=== PATIENT | female | born 1950 | race Caucasian/White ===

== ENCOUNTER 2019-12-10 12:59 | Outpatient (CLI) | payer MEDICARE, SELFPAY ==
--- NOTE | ~2019-12-10 | MM_ITS ---
EXAMINATION: MM screening sukhi BI w rajeev HISTORY: Screening TECHNIQUE: Craniocaudal and mediolateral oblique 3-D tomosynthesis images were obtained and synthetic 2-D images were generated. CAD analysis was submitted and interpreted. COMPARISON: Comparison to multiple prior studies sequentially, with oldest reviewed study dated 02/01. BREAST PARENCHYMAL COMPOSITION: There are scattered areas of fibroglandular density. FINDINGS: There is no evidence of suspicious mass, calcification, or architectural distortion to sugg est malignancy in either breast. There has been no suspicious interval change. IMPRESSION: 1. No mammographic evidence of malignancy. 2. Recommend routine screening mammography in one year. BI-RADS Category 1: Negative Reviewed, dictated and finalized at location A.
== END 2019-12-10 13:00 | disposition home or self-care (01) ==
LOC: ANHIMG 13:03
PROVIDERS: PCP Family Medicine; Visit Provider Family Medicine
DX: Z12.31 Encounter for screening mammogram for malignant neoplasm of breast (principal)
CPT/HCPCS: 77063; 77067

== ENCOUNTER 2021-08-23 13:47 | Outpatient (CLI) | payer MEDICARE, SELFPAY ==
--- NOTE | ~2021-08-23 | MM_ITS ---
EXAMINATION: MM screening sukhi BI w rajeev HISTORY: Screening TECHNIQUE: Craniocaudal and mediolateral oblique 3-D tomosynthesis images were obtained and synthetic 2-D images were generated. CAD analysis was submitted and interpreted. COMPARISON: Comparison to multiple prior studies sequentially, with oldest reviewed study dated 04/20. BREAST PARENCHYMAL COMPOSITION: Breast composition is almost entirely fatty FINDINGS: There is no evidence of suspicious mass, calcification, or architectural distortion to sugg est malignancy in either breast. There has been no suspicious interval change. IMPRESSION: 1. No mammographic evidence of malignancy. 2. Recommend routine screening mammography in one year. BI-RADS Category 1: Negative Reviewed, dictated and finalized at location A.
--- NOTE | ~2021-08-23 | DEXA_ITS ---
Bone Density Report Name: DMITRI VALENCIA Age: 71 Sex: Female Ethnicity: White Date of : 1950 Indication: postmenopausal; height loss; prior fracture; Referring Provider: ANA LAMBERT Study: Bone densitometry was performed. Exam Date: August 23, 2021 Accession number: [id number] Bone Density: Region BMD T-score Z-score Classification AP Spine (L1-L4) 0.961 -0.8 1.3 Normal Femoral Neck (Left) 0.750 -0.9 0.9 Normal Total Hip (Left) 1.008 0.5 2.0 Normal Total Hip Bilateral Avg 0.990 0.4 1.9 Normal Femoral Neck (Right) 0.779 -0.6 1.1 Normal Total Hip (Right) 0.970 0.2 1.7 Normal World Health Organization criteria for BMD impression classify patients as: Normal (T-score at or above -1.0), Osteopenia (T-score between -1.0 and -2.5), or Osteoporosis (T-score at or below -2.5). 10-year Fracture Risk: FRAX not reported because: All T-scores for Spine Total, Hip Total, Femoral Neck at or above -1.0 Previous Exams: Region Exam Age BMD T-score BMD Change BMD Change Date g/cm2 vs Baseline vs Previous AP Spine(L1-L4) 08/23/2021 71 0.961 -0.8 -0.013(-1.3%)# -0.013(-1.3%)# 06/05/2007 57 0.974 -0.7 Total Hip(Left) 08/23/2021 71 1.008 0.5 0.022(2.2%)# 0.022(2.2%)# 06/05/2007 57 0.985 0.4 Total Hip(Right) 08/23/2021 71 0.970 0.2 0.016(1.6%)# 0.016(1.6%)# 06/05/2007 57 0.954 0.1 *Denotes significance at 95% confidence level, LSC for AP Spine = 0.022 g/cm2, LSC for Total Hip = 0.027 g/cm2 Clinical Information Provided by Patient: Has had a low trauma fracture Has used the following medications: Vitamin D, Calcium Patient maximum height was 68 Menopause Age: 57 Drinks caffeinated beverages Onset of menses at age 15 Number of children 2 Impression: The patient has normal bone mass. The patient has risk factors, including: previous fracture. No significant bone loss was observed. Discussion: BONE DENSITY IS ABOVE THE MINIMUM DESIRABLE LEVEL AT ALL SKELETAL SITES TESTED. This patient?s bone mineral density is above the minimum desirable level (T-score -1.0 or better) at all sites measured. The patient should follow a healthful lifestyle (good nutrition with adequate calcium and vitamin D, and appropriate weight-bearing exercise). Follow-Up: Consider repeating this study in 5 years or sooner if there is some new clinical indication. Reported by: KAYLA on 08/23/2021 2:31:00 PM.
== END 2021-08-23 13:48 | disposition home or self-care (01) ==
PROVIDERS: PCP Family Medicine; Visit Provider Family Medicine
DX: Z12.31 Encounter for screening mammogram for malignant neoplasm of breast (principal); Z78.0 Asymptomatic menopausal state
CPT/HCPCS: 77063; 77067; 77080

== ENCOUNTER 2021-10-23 14:26 | Emergency (ER) | payer MEDICARE, SELFPAY ==
[2021-10-23 14:35] VITALS: BP 149/60; PULSE 83; RESP 16; TEMP 36.9; O2SAT 98
--- NOTE | 2021-10-23 14:54 | ED.SKABFB ---
HPI - Skin/Abscess/Foreign Bdy General Chief complaint: Skin/Abscess/Foreign Body Stated complaint: insect bite Time Seen by Provider: 10/23/21 14:55 Source: patient Mode of arrival: ambulatory Limitations: no limitations History of Present Illness HPI narrative: 71-year-old female presents with complaint of small blister to dorsal aspect of right foot for 4 to 5 days. Reports that it started with itching and then turned into a blister. Unsure of insect bite. No change to blister over the past several days. There is no erythema or pain. Itching has resolved. Patient concerned what may have caused blister. All systems reviewed and negative except as noted above. Related Data Home Medications Medication Instructions Recorded Confirmed cetirizine 10 mg capsule PO DAILY 06/27/19 10/10/21 famotidine 40 mg tablet 80 mg PO BID 11/25/19 10/10/21 acyclovir 400 mg tablet 1,200 mg PO DAILY 10/10/21 10/10/21 ascorbic acid (vitamin C) 500 mg 250 mg PO DAILY 10/10/21 10/10/21 tablet calcium carbonate 600 mg calcium 600 mg PO BID 10/10/21 10/10/21 (1,500 mg) tablet diclofenac sodium 1 % topical gel 4 g topical QID 10/10/21 10/10/21 (Arthritis Pain (diclofenac)) ferrous sulfate 325 mg (65 mg 325 mg PO DAILY 10/10/21 10/10/21 iron) tablet (Feosol) garlic 1,000 mg capsule 1,000 mg PO BID 10/10/21 10/10/21 magnesium oxide 400 mg PO BID 10/10/21 10/10/21 pdqiamoviswo-Fz-gmyx-minerals 18 tablet PO 10/10/21 10/10/21 mg-0.4 mg tablet wkxux-1p-ede-epa-fish oil 120 cap PO BID 10/10/21 10/10/21 mg-180 mg-60 mg-1,200 mg capsule, DR (Fish Oil) pirbuterol 200 mcg/Inhalation mcg inhalation 10/10/21 10/10/21 breath activated aerosol Beta Caratine 25,000 10/23/21 Super B Complex 10/23/21 Tumeric 1,000 mg 10/23/21 Vit B1 10/23/21 Vit B12 10/23/21 biotin 5,000 mcg disintegrating 10,000 mcg PO DAILY 10/23/21 10/23/21 tablet Allergies Allergy/AdvReac Type Severity Reaction Status Date / Time house dust Allergy Unknown Sneezing Verified 10/10/21 11:17 nickel Allergy Unknown rash Verified 10/10/21 11:17 pneumococcal vaccine Allergy Unknown Skin Verified 10/10/21 11:17 [Pneumovax 23] Reaction Review of Systems Review of Systems: CONSTITUTIONAL: Denies fever, chills, or sweats. EYES: Denies visual changes, redness, or discharge. ENT: Denies rhinorrhea, congestion, sore throat, or otalgia. CARDIOVASCULAR: Denies chest pain, palpitations, or edema. RESPIRATORY: Denies cough or dyspnea. GASTROINTESTINAL: Denies abdominal pain, nausea, vomiting, or diarrhea. GENITOURINARY: Denies dysuria or hematuria. SKIN: Denies rash or itching. Reports small blister to dorsal aspect right foot. MUSCULOSKELETAL: Denies back pain, joint pain, or myalgia. NEUROLOGIC: Denies headache, numbness, or weakness. PSYCHIATRIC: Denies anxiety or depression. All other systems reviewed are negative, except as documented in HPI. [facility] Family History Family History Mother Depression Sibling Family history of lupus erythematosus Family history of lymphoma Other Family history of cardiovascular disease Family history of glaucoma Social History Social History Alcohol intake: current Comments At time of signature, agree with nursing past medical, surgical, social and family history. There is no relevant family history pertinent to the presenting complaint. Exam Narrative: GENERAL: This is a well-nourished, well-developed patient, in no apparent distress. HEAD: normocephalic, atraumatic. EYES: PERRL. Sclera clear/white. Vision is grossly intact. EARS: External ears normal. NOSE: External nose normal NECK: Neck supple, non-tender without lymphadenopathy, masses or thyromegaly. CARDIOVASCULAR: Regular rate and rhythm without murmurs, gallops, or rubs. RESPIRATORY: Clear to auscultation. Breath sounds equal bilaterally. No
== END 2021-10-23 15:06 | disposition home or self-care (01) ==
PROVIDERS: Emergency Provider Nurse Practitioner Family; PCP Family Medicine
DX: S90.821A Blister (nonthermal), right foot, initial encounter (principal); X58.XXXA Exposure to other specified factors, initial encounter; I10 Essential (primary) hypertension; J45.909 Unspecified asthma, uncomplicated
CPT/HCPCS: 99213; G0463

== ENCOUNTER 2021-12-02 18:20 | Emergency (ER) | payer MEDICARE, SELFPAY ==
--- NOTE | 2021-12-02 18:36 | ED.ANIMALBIT ---
HPI - Animal Bite General Chief Complaint: Animal Bite Stated Complaint: Cat Scratches Time Seen by Provider: 12/02/21 18:36 Source: patient Mode of arrival: ambulatory Limitations: no limitations History of Present Illness HPI narrative: 71-year-old female presents with complaint of weeping and redness to medial aspect of left ankle. Reports that she recently got a new kitten and it scratches around the lower aspect of her legs. Denies fever chills. Ambulatory with a steady gait. Patient concerned that she may need an antibiotic. Called her primary care physician this morning who was not able to get an appointment. All systems reviewed and negative except as noted above. Related Data Home Medications Medication Instructions Recorded Confirmed cetirizine 10 mg capsule 10 mg PO DAILY 06/27/19 12/02/21 famotidine 40 mg tablet 80 mg PO BID 11/25/19 12/02/21 acyclovir 400 mg tablet 1,200 mg PO DAILY 10/10/21 12/02/21 ascorbic acid (vitamin C) 500 mg 250 mg PO DAILY 10/10/21 12/02/21 tablet calcium carbonate 600 mg calcium 600 mg PO BID 10/10/21 12/02/21 (1,500 mg) tablet diclofenac sodium 1 % topical gel 4 g topical QID 10/10/21 12/02/21 (Arthritis Pain (diclofenac)) ferrous sulfate 325 mg (65 mg 325 mg PO DAILY 10/10/21 12/02/21 iron) tablet (Feosol) garlic 1,000 mg capsule 1,000 mg PO BID 10/10/21 12/02/21 magnesium oxide 400 mg PO BID 10/10/21 12/02/21 ucxputiitcvv-Am-zjgv-minerals 18 1 tablet PO DAILY 10/10/21 12/02/21 mg-0.4 mg tablet mtpcw-0d-bet-epa-fish oil 120 1 cap PO BID 10/10/21 12/02/21 mg-180 mg-60 mg-1,200 mg capsule, DR (Fish Oil) pirbuterol 200 mcg/Inhalation 1 mcg inhalation DIRECTED 10/10/21 12/02/21 breath activated aerosol Beta Caratine 25,000 units PO DAILY 10/23/21 12/02/21 Super B Complex 1 tab-cap PO DAILY 10/23/21 12/02/21 Tumeric 1,000 mg PO DAILY 10/23/21 12/02/21 Vit B1 1 tab-cap PO DAILY 10/23/21 12/02/21 Vit B12 1 tab-cap PO DAILY 10/23/21 12/02/21 biotin 5,000 mcg disintegrating 10,000 mcg PO DAILY 10/23/21 12/02/21 tablet Allergies Allergy/AdvReac Type Severity Reaction Status Date / Time house dust Allergy Unknown Sneezing Verified 12/02/21 18:23 nickel Allergy Unknown rash Verified 12/02/21 18:23 pneumococcal vaccine Allergy Unknown Skin Verified 12/02/21 18:23 [Pneumovax 23] Reaction Review of Systems Review of Systems: CONSTITUTIONAL: Denies fever, chills, or sweats. EYES: Denies visual changes, redness, or discharge. ENT: Denies rhinorrhea, congestion, sore throat, or otalgia. CARDIOVASCULAR: Denies chest pain, palpitations, or edema. RESPIRATORY: Denies cough or dyspnea. GASTROINTESTINAL: Denies abdominal pain, nausea, vomiting, or diarrhea. GENITOURINARY: Denies dysuria or hematuria. SKIN: Denies rash or itching. Reports weeping, erythema to left ankle. MUSCULOSKELETAL: Denies back pain, joint pain, or myalgia. NEUROLOGIC: Denies headache, numbness, or weakness. PSYCHIATRIC: Denies anxiety or depression. All other systems reviewed are negative, except as documented in HPI. PMF[facility] Family History Family History Mother Depression Sibling Family history of lupus erythematosus Family history of lymphoma Other Family history of cardiovascular disease Family history of glaucoma Social History Social History Alcohol intake: current Comments At time of signature, agree with nursing past medical, surgical, social and family history. There is no relevant family history pertinent to the presenting complaint. Exam Narrative: GENERAL: This is a well-nourished, well-developed patient, in no apparent distress. HEAD: normocephalic, atraumatic. EYES: PERRL. Sclera clear/white. Vision is grossly intact. EARS: External ears normal NOSE: External nose normal NECK: Neck supple, non-tender without lymphadenopathy, masses or thyromegaly.
[2021-12-02 18:38] VITALS: BP 138/78; PULSE 73; RESP 20; TEMP 36.3; O2SAT 98
== END 2021-12-02 18:55 | disposition home or self-care (01) ==
PROVIDERS: Emergency Provider Nurse Practitioner Family
DX: S80.812A Abrasion, left lower leg, initial encounter (principal); W55.03XA Scratched by cat, initial encounter
CPT/HCPCS: 99213; G0463

== ENCOUNTER 2022-12-29 18:09 | Emergency (ER) | payer MEDICARE, SELFPAY ==
--- NOTE | ~2022-12-29 | XR_ITS ---
EXAM: XR knee RT 3V DATE: 12/29/2022 19:21 HISTORY: rt posterior knee pain I think I might have twisted it . COMPARISON: None available. FINDINGS: Normal mineralization. No fracture or dislocation. No lytic or blastic lesion. Small-volum e joint fluid. Mild tricompartmental osteoarthritis. No erosion or periosteal change. Soft tissues wi thin normal limits. IMPRESSION: No acute osseous finding in the right knee. Reviewed, dictated and finalized at location K.
[2022-12-29 18:28] VITALS: BP 151/70; PULSE 81; RESP 16; TEMP 37.3; O2SAT 99
--- NOTE | 2022-12-29 19:21 | ED.LOWEXIN ---
HPI - Extremity Injury (Lower) General Chief Complaint: Extremity Injury, Lower Stated Complaint: right knee pain Source: patient Mode of arrival: ambulatory Limitations: no limitations History of Present Illness HPI Narrative: 72-year-old female presented for complaint of right posterior knee pain after injury last night. Patient had been experiencing right knee pain for a few weeks which she states was a result of compensating for chronic left knee pain. She states last night she stepped down off of a step and felt a sharp pain to the back of her knee which she rates 10/10 pain. Since then pain has subsided, however it radiates to the thigh and mid calf. Pain is worse with bearing weight. Denies swelling, bruising, redness, numbness, tingling, weakness of the extremities. She has been using a quad cane from her since the injury. She takes naproxen daily for arthritis. Related Data Home Medications Medication Instructions Recorded Confirmed cetirizine 10 mg capsule 10 mg PO DAILY 06/27/19 12/29/22 famotidine 40 mg tablet 80 mg PO BID 11/25/19 12/29/22 acyclovir 400 mg tablet 1,200 mg PO DAILY 10/10/21 12/29/22 ascorbic acid (vitamin C) 500 mg 250 mg PO DAILY 10/10/21 12/29/22 tablet calcium carbonate 600 mg calcium 600 mg PO BID 10/10/21 12/29/22 (1,500 mg) tablet diclofenac sodium 1 % topical gel 4 g topical QID 10/10/21 12/29/22 (Arthritis Pain (diclofenac)) ferrous sulfate 325 mg (65 mg 325 mg PO DAILY 10/10/21 12/29/22 iron) tablet (Feosol) magnesium oxide 400 mg PO BID 10/10/21 12/29/22 ungqovexrgng-Bq-etzr-minerals 18 1 tablet PO DAILY 10/10/21 12/29/22 mg-0.4 mg tablet mgzga-6o-iqj-epa-fish oil 120 1 cap PO BID 10/10/21 12/29/22 mg-180 mg-60 mg-1,[address] (Fish Oil) pirbuterol 200 mcg/Inhalation 1 mcg inhalation DIRECTED 10/10/21 12/29/22 breath activated aerosol Super B Complex 1 tab-cap PO DAILY 10/23/21 12/29/22 Tumeric 1,000 mg PO DAILY 10/23/21 12/29/22 biotin 5,000 mcg disintegrating 10,000 mcg PO DAILY 10/23/21 12/29/22 tablet Allergies Allergy/AdvReac Type Severity Reaction Status Date / Time house dust Allergy Unknown Sneezing Verified 12/29/22 18:45 nickel Allergy Unknown rash Verified 12/29/22 18:45 pneumococcal vaccine Allergy Unknown Skin Verified 12/29/22 18:45 [Pneumovax 23] Reaction Review of Systems Review of Systems: CONSTITUTIONAL: Denies body aches, fever, chills EYES: Denies visual changes ENT: Denies rhinorrhea, congestion CARDIOVASCULAR: Denies chest pain, palpitations, or edema. RESPIRATORY: Denies cough or dyspnea. GASTROINTESTINAL: Denies abdominal pain, nausea, vomiting, or diarrhea. SKIN: Denies rash, itching, or wounds. MUSCULOSKELETAL: reports right knee pain Denies back pain, or myalgia. NEUROLOGIC: Denies headache, numbness, tingling, or weakness. PSYCH: Denies depression or anxiety. All systems reviewed & are unremarkable except as noted in HPI and below PMFSH Past Medical History Medical History (Updated 12/29/22 @ 19:59 by Alicia Castillo APRN) Diffuse cystic mastopathy Essential (primary) hypertension Moderate persistent asthma, uncomplicated Prediabetes Surgical History Surgical History Status post surgical removal of nail matrix of toe (~12/2021) Family History Family History Mother Depression Sibling Family history of lupus erythematosus Family history of lymphoma Other Family history of cardiovascular disease Family history of glaucoma Social History Social History Social History: Caffeine-very little Smoking status: Never smoker Alcohol intake: current Alcohol use details: rarely Substance use: never Lack of Transportation: No Lack of Food: Never True Current Housing: I Have Housing Concerned About F
== END 2022-12-29 20:07 | disposition home or self-care (01) ==
PROVIDERS: Emergency Provider Nurse Practitioner Family; PCP Family Medicine
DX: M25.561 Pain in right knee (principal); I10 Essential (primary) hypertension; J45.909 Unspecified asthma, uncomplicated; R73.03 Prediabetes
CPT/HCPCS: 73562; 99213; G0463

== ENCOUNTER 2023-02-06 08:31 | Outpatient (CLI) | payer MEDICARE, SELFPAY ==
--- NOTE | ~2023-02-06 | MM_ITS ---
EXAMINATION: MM screening sukhi BI w rajeev HISTORY: Screening TECHNIQUE: Craniocaudal and mediolateral oblique 3-D tomosynthesis images were obtained and synthetic 2-D images were generated. CAD analysis was submitted and interpreted. COMPARISON: Comparison to multiple prior studies sequentially, with oldest reviewed study dated 04/20. BREAST PARENCHYMAL COMPOSITION: Breast composition is almost entirely fatty FINDINGS: There is no evidence of suspicious mass, calcification, or architectural distortion to sugg est malignancy in either breast. There has been no suspicious interval change. IMPRESSION: 1. No mammographic evidence of malignancy. 2. Recommend routine screening mammography in one year. BI-RADS Category 1: Negative Reviewed, dictated and finalized at location A.
== END 2023-02-06 08:32 | disposition home or self-care (01) ==
PROVIDERS: PCP Family Medicine; Visit Provider Family Medicine
DX: Z12.31 Encounter for screening mammogram for malignant neoplasm of breast (principal)
CPT/HCPCS: 77063; 77067

== ENCOUNTER 2023-02-26 07:23 | Day surgery (SDC) | payer MEDICARE, SELFPAY ==
[2023-02-09 10:33] VITALS: BMI 38.8
[2023-02-13 11:38] VITALS: BMI 38.2
--- NOTE | 2023-02-26 07:25 | WPDANESEPPF ---
Anes - Initial Pre Proc Eval Procedure: Operation Date: 02/26/23 09:00 Proposed Procedures p Screening Colonoscopy - Tanmay Vazquez MD Date/Time: 02/26/23 07:25 Surgeon: Tanmay Vazquez MD Pre Op Diagnosis: Neoplasm Screening Patient Data Age: 72 Gender: F Height: 1.73 m Weight: 114 kg Allergies Allergy/AdvReac Type Severity Reaction Status Date / Time house dust Allergy Unknown Sneezing Verified 02/26/23 07:33 nickel Allergy Unknown rash Verified 02/26/23 07:33 pneumococcal vaccine Allergy Unknown Skin Verified 02/26/23 07:33 [Pneumovax 23] Reaction Home Medications Medication Instructions Recorded Confirmed Type cetirizine 10 mg capsule 10 mg PO DAILY 06/27/19 02/26/23 History famotidine 40 mg tablet 80 mg PO BID 11/25/19 02/26/23 History fluticasone propionate 50 1 spray intranasal Q12H #16 grams 10/06/20 02/26/23 Rx mcg/actuation nasal spray,suspension acyclovir 400 mg tablet 1,200 mg PO DAILY 10/10/21 02/26/23 History ascorbic acid (vitamin C) 500 mg 250 mg PO DAILY 10/10/21 02/26/23 History tablet calcium carbonate 600 mg calcium 600 mg PO BID 10/10/21 02/26/23 History (1,500 mg) tablet diclofenac sodium 1 % topical gel 4 g topical QID 10/10/21 02/26/23 History (Arthritis Pain (diclofenac)) ferrous sulfate 325 mg (65 mg 325 mg PO DAILY 10/10/21 02/26/23 History iron) tablet (Feosol) magnesium oxide 400 mg PO BID 10/10/21 02/26/23 History dzraqceuatce-Qd-ldwo-minerals 18 1 tablet PO DAILY 10/10/21 02/26/23 History mg-0.4 mg tablet srgqa-2a-mlw-epa-fish oil 120 1 cap PO BID 10/10/21 02/26/23 History mg-180 mg-60 mg-1,200 mg capsule, DR (Fish Oil) pirbuterol 200 mcg/Inhalation 1 mcg inhalation DIRECTED 10/10/21 02/26/23 History breath activated aerosol Super B Complex 1 tab-cap PO DAILY 10/23/21 02/26/23 History Tumeric 1,000 mg PO DAILY 10/23/21 02/26/23 History biotin 5,000 mcg disintegrating 10,000 mcg PO DAILY 10/23/21 02/26/23 History tablet losartan 100 See Rx Instructions .Route 09/14/22 02/26/23 Rx mg-hydrochlorothiazide 12.5 mg .COMPLEX #100 tabs tablet fluticasone 250 mcg-salmeterol 50 1 inh inhalation BID #60 ea 10/17/22 02/26/23 Rx mcg/dose blistr powdr for inhalation (Wixela Inhub) hydrochlorothiazide 12.5 mg capsule See Rx Instructions .Route 01/01/23 02/26/23 Rx .COMPLEX #90 caps montelukast 10 mg tablet See Rx Instructions .Route 02/05/23 02/26/23 Rx .COMPLEX #90 tabs Patient hx anesthesia problems: none Family hx anesthesia problems: none Results Review: All pre-operative results and documents have been reviewed as part of the pre-operative evaluation. [facility] Past Medical History Medical History (Updated 12/30/22 @ 00:08 by Jayson Decker) Diffuse cystic mastopathy Essential (primary) hypertension Moderate persistent asthma, uncomplicated Prediabetes Surgical History Surgical History Status post surgical removal of nail matrix of toe (~12/2021) Family History Family History Mother Depression Sibling Family history of lupus erythematosus Family history of lymphoma Other Family history of cardiovascular disease Family history of glaucoma Social History Social History Social History: Caffeine-very little Smoking status: Never smoker Alcohol intake: current Alcohol use details: rarely Substance use: never Substance use type: does not use Lack of Transportation: No Lack of Food: Never True Current Housing: I Have Housing Concerned About Future Housing: No Difficulty Paying Gas/Electric Bills: No Difficulty Paying for Meds: No Currently Unemployed: No Education: Master's Degree or Higher Difficulty w/ Childcare or Family Care: No Living arrangements: with family Spiritual care concerns:
[2023-02-26 07:42] VITALS: BP 142/108; PULSE 79; RESP 18; TEMP 36.4; O2SAT 98; BMI 37.7
[2023-02-26] MEDS: LACTATED RINGERS 1,000 ML 150 ML IV CONT (08:09)
--- NOTE | 2023-02-26 08:09 | PM.HPGS ---
History of Present Illness History of Present Illness Consent: Risks, benefits, and alternatives have been discussed and questions answered. Patient agrees to proceed with procedure. Chief complaint: Neoplasm Screening Narrative: Emma Valenzuela is a 72 year old female presents for screening colonoscopy. Patient's current weight appetite and bowel movements are normal. Patient is abdominal pain. Patient is any bleeding. Family history is noncontributory. Review of Systems Review of Systems: All systems reviewed & are unremarkable except as noted in HPI and below PMFSH Past Medical History Medical History (Updated 12/30/22 @ 00:08 by Jayson Decker) Diffuse cystic mastopathy Essential (primary) hypertension Moderate persistent asthma, uncomplicated Prediabetes Surgical History Surgical History Status post surgical removal of nail matrix of toe (~12/2021) Family History Family History Mother Depression Sibling Family history of lupus erythematosus Family history of lymphoma Other Family history of cardiovascular disease Family history of glaucoma Social History Social History Social History: Caffeine-very little Smoking status: Never smoker Alcohol intake: current Alcohol use details: rarely Substance use: never Substance use type: does not use Lack of Transportation: No Lack of Food: Never True Current Housing: I Have Housing Concerned About Future Housing: No Difficulty Paying Gas/Electric Bills: No Difficulty Paying for Meds: No Currently Unemployed: No Education: Master's Degree or Higher Difficulty w/ Childcare or Family Care: No Living arrangements: with family Spiritual care concerns: No Meds Home Medications and Allergies Home Medications Medication Instructions Recorded Confirmed Type cetirizine 10 mg capsule 10 mg PO DAILY 06/27/19 02/26/23 History famotidine 40 mg tablet 80 mg PO BID 11/25/19 02/26/23 History fluticasone propionate 50 1 spray intranasal Q12H #16 grams 10/06/20 02/26/23 Rx mcg/actuation nasal spray,suspension acyclovir 400 mg tablet 1,200 mg PO DAILY 10/10/21 02/26/23 History ascorbic acid (vitamin C) 500 mg 250 mg PO DAILY 10/10/21 02/26/23 History tablet calcium carbonate 600 mg calcium 600 mg PO BID 10/10/21 02/26/23 History (1,500 mg) tablet diclofenac sodium 1 % topical gel 4 g topical QID 10/10/21 02/26/23 History (Arthritis Pain (diclofenac)) ferrous sulfate 325 mg (65 mg 325 mg PO DAILY 10/10/21 02/26/23 History iron) tablet (Feosol) magnesium oxide 400 mg PO BID 10/10/21 02/26/23 History sogtilaycuew-Eu-ldti-minerals 18 1 tablet PO DAILY 10/10/21 02/26/23 History mg-0.4 mg tablet eczen-5u-onl-epa-fish oil 120 1 cap PO BID 10/10/21 02/26/23 History mg-180 mg-60 mg-1,200 mg capsule, DR (Fish Oil) pirbuterol 200 mcg/Inhalation 1 mcg inhalation DIRECTED 10/10/21 02/26/23 History breath activated aerosol Super B Complex 1 tab-cap PO DAILY 10/23/21 02/26/23 History Tumeric 1,000 mg PO DAILY 10/23/21 02/26/23 History biotin 5,000 mcg disintegrating 10,000 mcg PO DAILY 10/23/21 02/26/23 History tablet losartan 100 See Rx Instructions .Route 09/14/22 02/26/23 Rx mg-hydrochlorothiazide 12.5 mg .COMPLEX #100 tabs tablet fluticasone 250 mcg-salmeterol 50 1 inh inhalation BID #60 ea 10/17/22 02/26/23 Rx mcg/dose blistr powdr for inhalation (Wixela Inhub) hydrochlorothiazide 12.5 mg capsule See Rx Instructions .Route 01/01/23 02/26/23 Rx .COMPLEX #90 caps montelukast 10 mg tablet See Rx Instructions .Route 02/05/23 02/26/23 Rx .COMPLEX #90 tabs Allergies Allergy/AdvReac Type Severity Reaction Status Date / Time house dust Allergy Unknown Sneezing Verified 02/26/23 07:33 nickel Allergy Unknown ra
[2023-02-26 09:15] VITALS: BP 116/66; PULSE 81; RESP 14; O2SAT 98
[2023-02-26 09:25] VITALS: BP 105/59; PULSE 87; RESP 15; O2SAT 98
[2023-02-26 09:35] VITALS: BP 105/82; PULSE 75; RESP 14; O2SAT 100
--- NOTE | 2023-02-26 09:56 | WPDANESPN ---
Anes - Prog Note Post-Op Date/Time: 02/26/23 09:56 Cardiovascular status: normal Respiratory status: normal Airway patency: baseline Mental status: baseline Post-Op hydration status: normal Vital Signs: Last Vital Signs Temp 36.4 C 02/26/23 07:42 Pulse 75 02/26/23 09:35 Resp 14 02/26/23 09:35 BP 105/82 02/26/23 09:35 Pulse Ox 100 02/26/23 09:35 O2 Del Method Room Air 02/26/23 09:35 Pain Score (VAS): 0 I/O: Intake & Output 02/25/23 02/26/23 02/26/23 23:59 07:59 15:59 Intake Total 400 Balance 400 Post-procedural complaints: none Patient Feedback: Patient satisfied with anesthetic care. Other Findings: Patient vital signs back to baseline. Patient denies nausea and vomiting. Patient's pain under control. Patient OK for discharge.
== END 2023-02-26 10:03 | disposition home or self-care (01) ==
PROVIDERS: PCP Family Medicine; Visit Provider Internal Medicine Gastroenterology
PROC: 0DJD8ZZ Inspection of Lower Intestinal Tract, Via Natural or Artificial Opening Endoscopic (ICD-10-PCS; CPT 45378; principal; 2023-02-26 09:00)
DX: Z12.11 Encounter for screening for malignant neoplasm of colon (principal); K57.31 Diverticulosis of large intestine without perforation or abscess with bleeding; K64.8 Other hemorrhoids
CPT/HCPCS: 45378

== ENCOUNTER 2023-12-28 10:19 | Outpatient (CLI) | payer MEDICARE, SELFPAY ==
[2023-12-28 13:50] LABS: Basophils Absolute Auto 0.1 K/mm3 (0.0-0.1); Eosinophils Absolute Auto 0.4 K/mm3 (0-0.3); Eosinophils Percent Auto 7.4 % (0-4.4); Hematocrit 39.9 % (37.0-47.0); Hemoglobin 13.2 g/dL (12.0-15.0); Immature Granulocyte Absolute 0.02 K/mm3 (0.00-0.031); Immature Granulocyte Percent A 0.3 % (0-0.5); Lymphocytes Absolute Auto 1.68 K/mm3 (0.9-3.2); Lymphocytes Percent Auto 28.9 % (18.3-44.2); Mean Corpuscular HGB Conc 33.1 g/dl (32-36); Mean Corpuscular Hemoglobin 30.3 pg (26-34); Mean Corpuscular Volume 91.5 fl (80-100); Monocytes Absolute Auto 0.4 K/mm3 (0.1-0.6); Monocytes Percent Auto 7.4 % (2.6-8.5); Neutrophils Absolute Auto 3.2 K/mm3 (1.3-6.7); Platelet Count Result 145 k/mm3 (150-375); Red Blood Count 4.36 M/mm3 (4.2-5.4); Red Cell Distribution Width 13.7 % (11.5-14.5); White Blood Count 5.8 K/mm3 (4.5-10.0)
[2023-12-28 14:40] LABS: Alanine Aminotransferase 21 U/L (6-35); Alkaline Phosphatase 87 U/L (38-126); Anion Gap 9 mmol/L (4-12); Aspartate Amino Transferase 40 U/L (14-36); Bilirubin,Total 0.5 mg/dL (0.2-1.3); Blood Urea Nitrogen 13 mg/dL (7-17); Calcium 9.5 mg/dL (8.4-10.2); Carbon Dioxide 25 mmol/L (22-30); Chloride 106 mmol/L (98-107); Cholesterol 184 mg/dL (0-200); Estimated Glomerular Filt Rate > 60; Glucose 98 mg/dL (65-110); HDL Direct 56 mg/dL; Potassium 4.1 mmol/L (3.4-5.0); Sodium 140 mmol/L (137-145); Triglycerides 115 mg/dL (<150)
[2023-12-28 14:51] LABS: LDL Cholesterol Direct 94 mg/dL
[2023-12-28 15:42] LABS: Hepatitis C Virus Antibody Negative (Negative)
[2023-12-28 19:47] LABS: Hemoglobin A1C 5.5 % (<5.7)
== END 2023-12-28 10:20 | disposition home or self-care (01) ==
LOC: ANHGOSHLAB 10:20
PROVIDERS: PCP Family Medicine; Visit Provider Family Medicine
DX: E66.01 Morbid (severe) obesity due to excess calories (principal); J45.40 Moderate persistent asthma, uncomplicated; R73.01 Impaired fasting glucose; I10 Essential (primary) hypertension; Z68.37 Body mass index [BMI] 37.0-37.9, adult
CPT/HCPCS: 36415; 80053; 80061; 83036; 84443; 85025; 86803

== ENCOUNTER 2024-04-29 09:42 | Outpatient (CLI) | payer MEDICARE, SELFPAY ==
[2024-05-18 13:20] VITALS: BMI 35.4
--- NOTE | 2024-05-18 13:20 | WPDHOMESLEEP ---
Sleep Study - Home Unattended Date of Study: 04/29/24 Ordering Provider: Yg Camarillo MD Interpreting Provider: Jessica Lilly DO Home Sleep Study Type: Watch PAT Height: 1.73 m Weight: 105.744 kg Body Mass Index: 35.4 Neck Circumference (inches): 18 [place]: 0 Reason for Sleep Study snoring Sleep History The patient is a 73-year-old female that had a sleep study ordered her primary care physician for evaluation sleep apnea. The patient admits to snoring loudly as well as interruptions and breathing while asleep. She denies choking or gasping at night. She denies having trouble breathing on her back. She denies morning headaches. 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 She denies nocturnal heartburn. She denies nocturia. She denies having difficulty falling or staying asleep. She denies having difficulty returning to sleep if she wakes up throughout the night. She denies any hypnotic or sedative use. She denies feeling anxious about sleep. He denies feeling tired or sleepy during the day. She denies feeling tired in the morning. She denies having the urge to fall asleep during the day. She denies feeling drowsy while driving. She denies sleep paralysis, cataplexy and hypnagogic / hypnopompic hallucinations. She denies clenching or grinding her teeth. She denies kicking or jerking her legs excessively. She denies having a restless feeling in her legs. It takes her 15 minutes to fall asleep. She typically gets 6 hours 15 minutes of sleep on work days and 7 hours of sleep on her days off. Her sleep is a little more restorative on her days off. She denies taking any planned naps. She denies dream enactment behavior. She denies sleep walking. She denies consuming any caffeinated beverages throughout the day. She denies tobacco and alcohol use. She exercises 1-2 nights per week. [facility] Past Medical History Medical History Diffuse cystic mastopathy Essential (primary) hypertension Moderate persistent asthma, uncomplicated Prediabetes Surgical History Surgical History Status post surgical removal of nail matrix of toe (~12/2021) Family History Family History Mother Depression Sibling Family history of lupus erythematosus Family history of lymphoma Other Family history of cardiovascular disease Family history of glaucoma Social History Social History Social History: Caffeine-very little Smoking status: Never smoker Alcohol intake: current Alcohol use details: rarely Substance use: current Substance use type: marijuana Other substance usage details: gummy or edible on occasion for sleep Do You Feel Safe in your Home?: Yes Lack of Transportation: No Lack of Food: Never True Current Housing: I Have Housing Concerned About Future Housing: No Difficulty Paying Gas/Electric Bills: No Difficulty Paying for Meds: No Currently Unemployed: No Education: Master's Degree or Higher Difficulty w/ Childcare or Family Care: No Living arrangements: with family Spiritual care concerns: No Medications Home Medications ?Medication ?Instructions ?Recorded ?Confirmed ?Type cetirizine 10 mg capsule 10 mg PO DAILY 06/27/19 01/04/24 History fluticasone propionate 50 1 spray intranasal Q12H #16 grams 10/06/20 01/04/24 Rx mcg/actuation nasal spray,suspension acyclovir 400 mg tablet 1,200 mg PO DAILY 10/10/21 01/04/24 History ascorbic acid (vitamin C) 500 mg 250 mg PO DAILY 10/10/21 01/04/24 History tablet calcium carbonate 600 mg PO BID 10/10/21 01/04/24 History diclofenac sodium 1 % topical gel 4 g topical QID 10/10/21 01/04/24 History (Arthritis Pain (diclofenac)) magnesium oxide 400 mg PO BID 10/10/21 01/04/24 History viexijvmdnqz-Bz-dljz-minerals 18 1 tablet PO DAILY 10/10/21 01/04/24 History mg-0.4 mg tablet dyoby-3y-qpw-epa-fish oil 120 1 cap PO BID 10/10/21 01/04/24 History mg-180 mg-60 mg-1,200 mg capsule, DR (Fish Oil) pirbuterol 200 mcg/Inhalation 1 mcg inhalation DIRECTED 10/10/21 01/04/24 History breath activated aerosol Super B Complex 1 tab-cap PO DAILY 10/23/21 01/04/24 History Tumeric 1,000 mg PO DAILY 10/23/21 01/04/24 History biotin 5,000 mcg disintegrating 10,000 mcg PO DAILY 10/23/21 01/04/24 History tablet acetaminophen 325 mg capsule 325 mg PO QHS PRN 06/29/23 01/04/24 History beta carotene 7,500 mcg (25,000 7,500 mcg PO DAILY 06/29/23 01/04/24 History unit) capsule cholecalciferol (vitamin D3) 25 25 mcg PO DAILY 06/29/23 01/04/24 History mcg (1,000 unit) capsule famotidine 20 mg tablet 20 mg PO BID 06/29/23 01/04/24 History ferrous gluconate 225 mg (27 mg 225 mg PO DAILY 06/29/23 01/04/24 History iron) tablet (Fergon) naproxen sodium 220 mg capsule 220 mg PO DAILY PRN 06/29/23 01/04/24 History (Aleve) sodium chloride 0.65 % nasal spray 1 spray intranasal BID PRN 06/29/23 01/04/24 History aerosol (Saline Nasal) thiamine HCl (vitamin B1) 250 mg 250 mg PO DAILY 06/29/23 01/04/24 History tablet solifenacin 5 mg tablet (Vesicare) 5 mg PO DAILY #90 tabs 09/27/23 01/04/24 Rx montelukast 10 mg tablet See Rx Instructions .Route 12/24/23 01/04/24 Rx .COMPLEX #100 tabs hydrochlorothiazide 12.5 mg capsule See Rx Instructions .Route 01/04/24 01/04/24 Rx .COMPLEX #90 caps vibegron 75 mg tablet (Gemtesa) 75 mg PO DAILY #90 tabs 01/04/24 01/04/24 Rx fluticasone 250 mcg-salmeterol 50 1 inh inhalation BID #60 ea 02/01/24 Rx mcg/dose blistr powdr for inhalation (Wixela Inhub) losartan 100 See Rx Instructions .Route 02/25/24 Rx mg-hydrochlorothiazide 12.5 mg .COMPLEX #100 tabs tablet Sleep Procedure The sleep study was completed using WatchPAT a technically adequate device with seven channels: peripheral arterial tone, actigraphy, body position, snore, respiratory movement, pulse oximetry, sleep staging, and heart rate. Prior to using the device, the patient received verbal and written instructions for its application and was provided with the help desk phone number for additional telephonic instruction with 24-hour availability of qualified personnel to answer questions. The study was scored using CMS guidelines. Sleep Architecture The total recording time is 7 hrs, 14 min. The total sleep time is 6 hrs, 48 min. Sleep latency is 6 minutes. REM latency is 75 minutes. The patient had 4 episodes of waking. Sleep architecture shows 18.5% deep sleep, 51.2% light sleep, and (as % Total Sleep Time) showed NREM (Light 51.2%; Deep 18.5%), and a 30.3% stage REM. The patient spent 83.2% of total sleep time in the supine position. Sleep efficiency was 94.01. Respiratory Analysis The overall AHI (pAHI 4%:) is 24.0. The central AHI is 5.4. The AHI was 10.6 in NREM and 54.7 in REM sleep. The AHI was 28.1 in Supine and 3.5 in Non-supine sleep. Percent of Yobani Wyatt respirations is 0.0. Oximetry Data The oxygen desaturation index (JULIO 4%:) is 23.1. The mean saturation is 93%, and the lowest saturation is 73%. Time spent with saturation < 88% is 13.7 minutes. Snoring Profile Snoring average intensity is 43 dB. The patient snored above 45 decibels for 96.1 minutes, 23.5% of sleep time. Cardiac Profile The average pulse rate is 74 beats per minutes. The lowest pulse rate is 52 bpm. The highest pulse rate reported is 105 bpm. Atrial fibrillation was not detected. Premature beats occur <0.1 per minute. Assessment and Plan Assessment and Plan (1) DUONG (obstructive sleep apnea): Code(s): G47.33 - Obstructive sleep apnea (adult) (pediatric) Status: Acute Assessment and Plan: The patient had an overall AHI of 24.0 with desaturation down to 73%. This is consistent with moderate sleep apnea. The patient had a central apnea index of 5.4 which is elevated. Due to the elevated central apnea index, the patient is not a candidate for AutoPAP. AutoPAP can increase the severity and frequency of central apneas. I recommend that the patient had a CPAP titration study with the use of a hypnotic (Lunesta 2-3 mg or Ambien 5-10 mg) to ensure we obtain enough sleep data and find an optimal pressure. The patient needs to have an echocardiogram done to rule out cardiogenic causes for an elevated central apnea index. Data The data obtained during this sleep study is adequate for interpretation. Certification This sleep study has been reviewed by a board certified sleep medicine physician.
== END 2024-04-30 11:53 | disposition home or self-care (01) ==
PROVIDERS: PCP Family Medicine; Visit Provider Family Medicine
DX: G47.33 Obstructive sleep apnea (adult) (pediatric) (principal); G47.9 Sleep disorder, unspecified
CPT/HCPCS: 95800

== ENCOUNTER 2024-06-09 13:43 | Outpatient (CLI) | payer MEDICARE, SELFPAY ==
--- NOTE | 2024-06-09 14:02 | ECHO_ITS ---
Patient Info Name: Emma Valenzuela Age: 74 years : 1950 Gender: Female Ht: 68 in Wt: 234 lbs BSA: 2.30 m2 HR: 73 bpm BP: 146 / 67 mmHg Technical Quality: Fair Exam Date: 06/09/2024 2:10 PM Exam Location: Echo Lab Patient Status: Outpatient Admit Date: 06/09/2024 Staff Ordering Physician: Yg Camarillo MD Compound Coating Machine Offbearer: Chanel Ball RDCS Attending Provider: Yg Camarillo MD Referring Physician: Rabia QUINTERO; Exam Type: CA echo doppler color flow Study Info Indications - OBSTRUCTIVE SLEEP APNEA - ESS HTN Complete two-dimensional, color flow and Doppler transthoracic echocardiogram is performed. Summary 1. Complete two-dimensional, color flow and Doppler transthoracic echocardiogram is performed. 2. Left ventricular chamber dimension is normal. 3. Left ventricular systolic function is normal, estimated at 60-65%. 4. There is mild concentric increased left ventricular wall thickness. 5. The left ventricular diastolic function is abnormal. 6. E/e' 12 is mildly elevated. 7. Left atrial chamber dimension is mildly enlarged. 8. The mitral valve has mildly calcified annulus. 9. There is trace mitral valve regurgitation. 10. There is trace tricuspid valve regurgitation. 11. No pulmonary hypertension, estimated pulmonary arterial systolic pressure is 33 mmHg. Left Ventricle E/e' 12 is mildly elevated. Left ventricular chamber dimension is normal. Left ventricular systolic function is normal, estimated at 60-65%. There is mild concentric increased left ventricular wall thickness. The left ventricular diastolic function is abnormal. Right Ventricle Right ventricular systolic function is normal and with normal TAPSE 2.4 cm. Right ventricular chamber dimension is normal. Left Atria Left atrial chamber dimension is mildly enlarged. Right Atria Right atrial chamber dimension is normal. Aortic Valve The aortic valve is trileaflet. There is no aortic valve stenosis. There is no aortic valve regurgitation. Pulmonic Valve There is no pulmonic regurgitation. Mitral Valve The mitral valve has mildly calcified annulus. There is no mitral valve stenosis. There is trace mitral valve regurgitation. Tricuspid Valve There is trace tricuspid valve regurgitation. No pulmonary hypertension, estimated pulmonary arterial systolic pressure is 33 mmHg. Pericardium/Pleural There is no pericardial effusion. Inferior Vena Cava Normal inferior vena cava with >50% collapse upon inspiration consistent with normal right atrial pressure, 5 mmHg. Aorta The aortic root size at the sinus of Valsalva is normal. Left Ventricular Outflow Tract Name Value Normal LVOT 2D LVOT Diameter 1.8 cm LVOT Doppler LVOT Peak Velocity 118 cm/s LVOT Peak Gradient 6 mmHg LVOT Mean Gradient 4 mmHg LVOT VTI 30 cm LVOT VTI/AV VTI Ratio 0.9 LVOT Stroke Volume 76 ml LVOT CO 5.7 l/min LVOT CI 2.5 l/min/m2 Pulmonic Valve Name Value Normal RVOT Doppler RVOT Peak Gradient 3 mmHg PV Doppler PV Peak Velocity 94 cm/s PV Peak Gradient 4 mmHg Mitral Valve Name Value Normal MV Doppler MV Peak Gradient 5 mmHg MV Mean Gradient 2 mmHg MV Decel [place] 594 cm/s2 MV PHT 47 ms MV Area (PHT) 4.7 cm2 4.0-5.0 MV Area (Cont Eq VTI) 2.6 cm2 MV Diastolic Function MV E Peak Velocity 96 cm/s MV A Peak Velocity 89 cm/s MV E/A 1.1 MV Decel Time 162 ms MV Annular TDI MV Septal e' Velocity 8.7 cm/s >=8.0 MV E/e' (Septal) 11.0 <=8.0 MV Lateral e' Velocity 7.2 cm/s >=10.0 MV E/e' (Lateral) 13.3 <=8.0 MV e' Average 7.95 MV E/e' (Average) 12.2 Tricuspid Valve Name Value Normal TV Regurgitation Doppler TR Peak Velocity 266 cm/s TR Peak Gradient 27 mmHg Estimated PAP/RSVP RA Pressure 5 mmHg <=5 PA Systolic Pressure 33 mmHg <36 RV Systolic Pressure 33 mmHg <36 TV Annular TDI TV Lateral Kaya s' Velocity 21.4 cm/s 9.5-18.7 Aorta Name Value Normal Ascending Aorta Ao Root Diameter (MM) 2.7 cm Ao Root Diam Index (MM) 1.2 cm/m2 Ao [place] Diameter 2.5 cm 2.3-2.9 Aortic Valve Name Value Normal AV Doppler AV Peak Velocity 142 cm/s AV Peak Gradient 8 mmHg AV Mean Gradient 5 mmHg AV VTI 32 cm AV Area (Cont Eq VTI) 2.4 cm2 >=3.0 AV Area (Cont Eq Tera) 2.1 cm2 AV V1/V2 Ratio 0.83 AV Regurgitation 2D LVOT Area 2.5 cm2 Ventricles Name Value Normal LV Dimensions 2D/MM IVS Diastolic Thickness (2D) 1.3 cm 0.6-1.0 LVID Diastole (2D) 4.5 cm 3.8-5.2 LVIW Diastolic Thickness (2D) 1.4 cm 0.6-0.9 LVID Systole (2D) 2.8 cm 2.2-3.5 LVOT Diameter 1.8 cm LV Mass (2D Cubed) 234.62 g 67.00-162.00 LV Mass Index (2D Cubed) 102 g/m2 43-95 Relative Wall Thickness (2D) 0.63 LV Fractional Shortening/Ejection Fraction 2D/MM LV Fractional Shortening (2D) 37 % 27-45 LV EF (2D Teicholz) 67 % 54-74 LV Diastolic Volume (4C MOD) 80 ml LV EF (4C MOD) 58 % LV Diastolic Volume (2C MOD) 63 ml LV EF (2C MOD) 68 % LV Diastolic Volume (BP MOD) 74 ml 46-106 LV Diastolic Volume Index (BP MOD) 32 ml/m2 29-61 LV Systolic Volume (BP MOD) 26 ml 14-42 LV Systolic Volume Index (BP MOD) 11 ml/m2 8-24 LV EF (BP MOD) 65 % 54-74 LV Diastolic Length (4C) 6.9 cm LV Systolic Length (4C) 5.2 cm LV Stroke Volume (4C MOD) 46 ml Atria Name Value Normal LA Dimensions LA Dimension (MM) 4.1 cm 2.7-3.8 LA Volume (4C A-L) 62 ml LA Volume (BP A-L) 57 ml RA Dimensions RA Area (4C) 15.2 cm2 <=18.0 Report Signatures
== END 2024-06-09 13:44 | disposition home or self-care (01) ==
PROVIDERS: PCP Family Medicine; Visit Provider Family Medicine
DX: G47.33 Obstructive sleep apnea (adult) (pediatric) (principal); G47.9 Sleep disorder, unspecified; J45.40 Moderate persistent asthma, uncomplicated; I10 Essential (primary) hypertension
CPT/HCPCS: 93306

== ENCOUNTER 2024-07-15 07:43 | Outpatient (CLI) | payer MEDICARE, SELFPAY ==
--- NOTE | 2024-08-07 08:52 | P.SLEEP_ITS ---
Sleep Study Date of Study: 07/15/24 Ordering Provider: Yg Camarillo MD Interpreting Physician: Jessica Lilly DO Sleep Study Type: CPAP Titration Height: 1.73 m Weight: 106.141 kg Body Mass Index: 35.6 Neck Circumference (inches): 18 [place]: 0 Reason for Sleep Study WatchPAT home sleep test on 04/29/2024 that showed an overall AHI of 24.0 with desaturation down to 73%. JENNIFER of 5.4. Sleep History The patient is a 74-year-old female that had a sleep study ordered her primary care physician for evaluation sleep apnea. The patient admits to snoring loudly as well as interruptions and breathing while asleep. She denies choking or gasping at night. She denies having trouble breathing on her back. She denies morning headaches. 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 She denies nocturnal heartburn. She denies nocturia. She denies having difficulty falling or staying asleep. She denies having difficulty returning to sleep if she wakes up throughout the night. She denies any hypnotic or sedative use. She denies feeling anxious about sleep. He denies feeling tired or sleepy during the day. She denies feeling tired in the morning. She denies having the urge to fall asleep during the day. She denies feeling drowsy while driving. She denies sleep paralysis, cataplexy and hypnagogic / hypnopompic hallucinations. She denies clenching or grinding her teeth. She denies kicking or jerking her legs excessively. She denies having a restless feeling in her legs. It takes her 15 minutes to fall asleep. She typically gets 6 hours 15 minutes of sleep on work days and 7 hours of sleep on her days off. Her sleep is a little more restorative on her days off. She denies taking any planned naps. She denies dream enactment behavior. She denies sleep walking. She denies consuming any caffeinated beverages throughout the day. She denies tobacco and alcohol use. She exercises 1-2 nights per week. [facility] Past Medical History Medical History Diffuse cystic mastopathy Essential (primary) hypertension Moderate persistent asthma, uncomplicated Prediabetes Surgical History Surgical History Status post surgical removal of nail matrix of toe (~12/2021) Family History Family History Mother Depression Sibling Family history of lupus erythematosus Family history of lymphoma Other Family history of cardiovascular disease Family history of glaucoma Social History Social History Social History: Caffeine-very little Smoking status: Never smoker Alcohol intake: current Alcohol use details: rarely Substance use: current Substance use type: marijuana Other substance usage details: gummy or edible on occasion for sleep Do You Feel Safe in your Home?: Yes Lack of Transportation: No Lack of Food: Never True Current Housing: I Have Housing Concerned About Future Housing: No Difficulty Paying Gas/Electric Bills: No Difficulty Paying for Meds: No Currently Unemployed: No Education: Master's Degree or Higher Difficulty w/ Childcare or Family Care: No Living arrangements: with family Spiritual care concerns: No Medications Home Medications ?Medication ?Instructions ?Recorded ?Confirmed ?Type cetirizine 10 mg capsule 10 mg PO DAILY 06/27/19 07/11/24 History fluticasone propionate 50 1 spray intranasal Q12H #16 grams 10/06/20 07/11/24 Rx mcg/actuation nasal spray,suspension acyclovir 400 mg tablet 1,200 mg PO DAILY 10/10/21 07/11/24 History ascorbic acid (vitamin C) 500 mg 250 mg PO DAILY 10/10/21 07/11/24 History tablet calcium carbonate 600 mg PO BID 10/10/21 07/11/24 History diclofenac sodium 1 % topical gel 4 g topical QID 10/10/21 07/11/24 History (Arthritis Pain (diclofenac)) magnesium oxide 400 mg PO BID 10/10/21 07/11/24 History cunkozeydaib-Hv-txzz-minerals 18 1 tablet PO DAILY 10/10/21 07/11/24 History mg-0.4 mg tablet voiqc-6z-xra-epa-fish oil 120 1 cap PO BID 10/10/21 07/11/24 History mg-180 mg-60 mg-1,200 mg capsule, DR (Fish Oil) pirbuterol 200 mcg/Inhalation 1 mcg inhalation DIRECTED 10/10/21 07/11/24 History breath activated aerosol Super B Complex 1 tab-cap PO DAILY 10/23/21 07/11/24 History Tumeric 1,000 mg PO DAILY 10/23/21 07/11/24 History biotin 5,000 mcg disintegrating 10,000 mcg PO DAILY 10/23/21 07/11/24 History tablet acetaminophen 325 mg capsule 325 mg PO QHS PRN 06/29/23 07/11/24 History beta carotene 7,500 mcg (25,000 7,500 mcg PO DAILY 06/29/23 07/11/24 History unit) capsule cholecalciferol (vitamin D3) 25 25 mcg PO DAILY 06/29/23 07/11/24 History mcg (1,000 unit) capsule famotidine 20 mg tablet 20 mg PO BID 06/29/23 07/11/24 History ferrous gluconate 225 mg (27 mg 225 mg PO DAILY 06/29/23 07/11/24 History iron) tablet (Fergon) naproxen sodium 220 mg capsule 220 mg PO DAILY PRN 06/29/23 07/11/24 History (Aleve) sodium chloride 0.65 % nasal spray 1 spray intranasal BID PRN 06/29/23 07/11/24 History aerosol (Saline Nasal) thiamine HCl (vitamin B1) 250 mg 250 mg PO DAILY 06/29/23 07/11/24 History tablet solifenacin 5 mg tablet (Vesicare) 5 mg PO DAILY #90 tabs 09/27/23 07/11/24 Rx hydrochlorothiazide 12.5 mg capsule See Rx Instructions .Route 01/04/24 07/11/24 Rx .COMPLEX #90 caps vibegron 75 mg tablet (Gemtesa) 75 mg PO DAILY #90 tabs 01/04/24 07/11/24 Rx zolpidem 10 mg tablet (Ambien) 10 mg PO QHS #1 tablet 05/19/24 07/11/24 Rx montelukast 10 mg tablet See Rx Instructions .Route 06/09/24 07/11/24 Rx .COMPLEX #100 tabs fluticasone 250 mcg-salmeterol 50 1 inh inhalation BID #60 ea 07/15/24 Rx mcg/dose blistr powdr for inhalation (Wixela Inhub) losartan 100 See Rx Instructions .Route 07/16/24 Rx mg-hydrochlorothiazide 12.5 mg .COMPLEX #100 tabs tablet Sleep Procedure A full night CPAP Titration using the [employer] Voice [employer] multi-channel system recorded the standard physiologic parameters including EEG, EOG, submentalis EMG, anterior tibialis EMG, EKG, body position, nasal and oral airflow using nasal pressure sensor and thermistor.? Respiratory parameters of chest and abdominal movements were recorded with Respiratory Inductance Plethysmography belts. Oxygen saturation was recorded by pulse oximetry. Video monitoring was also performed. Sleep stages, periodic limb movements, and EEG arousals were scored in 30 second epochs according to the criteria of the AASM Scoring Manual. The Apnea-Hypopnea Index was calculated using [facility] guidelines for definition of hypopnea with 4% O2 desaturations while scoring respiratory events. Sleep Architecture The total recording time was 455.1 minutes.? The total sleep time was 417.5 minutes. Sleep latency was 6.9 minutes. REM latency was 145.0 minutes. Sleep efficiency was 91.7%. The patient had 15 awakenings for an awakening index of 2.2. Wake after Sleep Onset time was 31.0 minutes. The patient spent 20.5 minutes, 4.9% of total sleep time in Stage N1. The patient spent 229.0 minutes, 54.9% in Stage N2. The patient spent 101.0 minutes, 24.2% in Stage N3. The patient spent 67.0 minutes, 16.0% in Stage REM. Respiratory Analysis The patient had 17 hypopneas for an overall Apnea Hypopnea Index of 2.4 events per hour. The REM Apnea Hypopnea Index was 1.8. The NREM Apnea Hypopnea Index was 2.6. The patient had a Central Apnea Hypopnea Index of 0. There was no evidence of Yobani-Wyatt Respirations. The patient was started on CPAP 5 cm H2O and titrated to CPAP 9 cm H2O due to hypopneas. The patient was able to fall asleep starting on CPAP 5 cm H2O. The patient was able to achieve REM sleep starting on CPAP 7 cm H2O. The patient was able to achieve a residual AHI less than 5 with both NREM and REM sleep in the supine position on the final two pressure settings. On CPAP 7 cm H2O, the patient spent 223.5 minutes in NREM and 39 minutes in REM with 14 hypopneas, resulting in an AHI of 3.2. On CPAP 9 cm H2O, the patient spent 88.5 minutes in NREM and 28 minutes in REM with 2 hypopneas, resulting in an AHI of 1.0. The patient had a sleep efficiency of 92.6% on 7 cm H2O and 95.5% on 9 cm H2O. Arousals There were 58 total arousals for an arousal index of 8.3. There were 46 spontaneous arousals for an index of 6.6. ?There were 7 arousals due to respiratory events for an index of 1.0. There were 0 arousals due to periodic limb movements for an index of 0.? There were 5 arousals due to isolated limb movements for an index of 0.7. Periodic Limb Movements The patient had 13 isolated limb movements with an index of 1.9. The patient had 0 periodic limb movements with index of 0. Patient had a total of 13 limb movements with a total limb movement index of 1.9. Oximetry Data The patient had an average oxygen saturation of 91.5% in sleep with a minimum oxygen saturation of 85.0% and a maximum oxygen saturation of 98.0%. The patient had 21 oxygen desaturations that were 4% or greater resulting in an Oxygen Desaturation Index of 3.0.? The patient spent 1.9 minutes, 0.4% of total sleep time with an oxygen saturation below 88%. Snoring Profile Mild snoring was present intermittently in the beginning of the study. The snoring resolved once the patient was titrated to 7 cm H2O. Cardiac Profile The EKG showed normal sinus rhythm. No arrhythmias or PVCs were seen. The patient had an average pulse rate of 79.9 bpm with a minimum pulse rate of 58.0 bpm and a maximum pulse rate of 96.0 bpm. ? EEG Profile No signs of seizure activity seen. Assessment and Plan Assessment and Plan (1) DUONG (obstructive sleep apnea): Code(s): G47.33 - Obstructive sleep apnea (adult) (pediatric) Status: Acute Assessment and Plan: The patient was started on CPAP 5 cm H2O and titrated to CPAP 9 cm H2O due to hypopneas. The patient's sleep apnea resolved on the final pressure setting with a high sleep efficiency. I recommend that the patient be prescribed Resmed CPAP at 9 cm H2O, size small Resmed N30 nasal mask, CPAP filters/tubing and heated humidity. This should be used with all episodes of sleep.? Compliance should be reviewed within 31-90 days of starting therapy for usage greater than 4 hours per night greater than 70% of the nights. The patient should be asked about symptoms such as?excessive daytime sleepiness, quality of sleep, decreased nocturia, increased ?mental functioning such as memory, mood, and concentration. Data The data obtained during this sleep study is adequate for interpretation. Certification This sleep study has been reviewed by a board certified sleep medicine physician.
[2024-08-07 11:00] VITALS: BMI 35.6
== END 2024-07-16 07:34 | disposition home or self-care (01) ==
PROVIDERS: PCP Family Medicine; Visit Provider Family Medicine
DX: G47.9 Sleep disorder, unspecified (principal); G47.33 Obstructive sleep apnea (adult) (pediatric); G47.10 Hypersomnia, unspecified
CPT/HCPCS: 95811

== ENCOUNTER 2024-08-28 10:32 | Outpatient (CLI) | payer MEDICARE, SELFPAY ==
--- NOTE | ~2024-08-28 | MM_ITS ---
EXAMINATION: MM screening sukhi BI w rajeev HISTORY: Screening TECHNIQUE: Craniocaudal and mediolateral oblique 3-D tomosynthesis images were obtained and synthetic 2-D images were generated. CAD analysis was submitted and interpreted. COMPARISON: Comparison to multiple prior studies sequentially, with oldest reviewed study dated 04/20. BREAST PARENCHYMAL COMPOSITION: Not Dense: The breasts are almost entirely fatty. FINDINGS: There is no evidence of suspicious mass, calcification, or architectural distortion to sugg est malignancy in either breast. There has been no suspicious interval change. IMPRESSION: 1. No mammographic evidence of malignancy. 2. Recommend routine screening mammography in one year. BI-RADS Category 1: Negative Reviewed, dictated and finalized at location A.
== END 2024-08-28 10:33 | disposition home or self-care (01) ==
PROVIDERS: PCP Family Medicine; Visit Provider Family Medicine
DX: Z12.31 Encounter for screening mammogram for malignant neoplasm of breast (principal)
CPT/HCPCS: 77063; 77067

== ENCOUNTER 2024-09-03 13:30 | Emergency (ER) | payer MEDICARE, SELFPAY ==
--- NOTE | ~2024-09-03 | CT_ITS ---
Non-contrast Head CT History: Head injury Technique: Axial non-contrast imaging of the brain was performed. Dose reduction technique was used on this scan by utilizing automated exposure control and iterative reconstruction technique. The dose -length product (DLP) was 605.33 mGy-cm. Findings: There is no evidence of intracranial hemorrhage, mass lesion, or acute infarct. Brain par enchyma appears normal. The ventricles and subarachnoid spaces are normal in size. The calvarium ap pears normal. The visualized paranasal sinuses and mastoid air cells are clear. Impression: No significant abnormality seen. Reviewed, dictated and finalized at location . Impression: No significant abnormality seen.
--- NOTE | ~2024-09-03 | CT_ITS ---
Noncontrast CT scan of the cervical spine Technique: Multiple contiguous axial [address] images of the cervical spine were obtained and rec onstructed in 2D sagittal and coronal planes on the acquisition scanner. Dose reduction technique was used on this scan by utilizing automated exposure control, adjustment of the mA and/or kV according to patient size. The dose-length product (DLP) was 436.78 mGy-cm. Clinical History: Pain Findings: No fractures or dislocations. There is reversal normal cervical lordosis. There is moderat e to advanced degenerative disc narrowing at C4-C5, C5-C6, and C6-C7. There is mild right neural fora angelita narrowing at C4-C5. There is probable mild neural foraminal narrowing, especially left side, at C5-C6. There is bilateral neural foraminal narrowing at C6-C7. There is mild canal stenosis at C6-C7 , and probably at C5-C6. No prevertebral soft tissue swelling. Impression: No fracture or subluxation of the cervical spine. Moderate to advanced degenerative spondylosis, as above. Reviewed, dictated and finalized at [facility]. Impression: No fracture or subluxation of the cervical spine. Moderate to advanced degenerative spondylosis, as above.
[2024-09-03 13:38] VITALS: BP 143/60; PULSE 70; RESP 16; TEMP 36.1; O2SAT 99
--- NOTE | 2024-09-03 13:44 | ED.HEATRA ---
HPI - Head Injury General Chief complaint: Head Injury Stated complaint: Hit in head by wheel darien yesterday Time Seen by Provider: 09/03/24 14:38 Focused HPI: 74-year-old female presents to the emergency department for head injury that occurred yesterday. Patient states she was working in the garden bending over when the wheel barrel fell on her head. She did not lose consciousness. She is not anticoagulated. States she was feeling fine yesterday woke up this morning with some nausea and brain fogginess. She is also reporting some pain to her neck. She denies vision changes, focal numbness or weakness, other injuries acquired. GENERAL: Well-appearing, well-nourished, and in no acute distress. HEAD: Normocephalic, atraumatic. CHEST: Clear to auscultation. ?No respiratory distress. HEART: Regular rate and rhythm.? NEURO: ?Alert and oriented x4. Cranial nerves 2-12 intact. Strength 5/5 in BUE and BLE. Sensation intact throughout. Patient screened in triage and initial orders placed.? ?Additional care and disposition to be based upon?diagnostic testing and treatment. Related Data Home Medications ?Medication ?Instructions ?Recorded ?Confirmed ?Last Taken ?Type cetirizine 10 mg capsule 10 mg PO DAILY 06/27/19 07/11/24 02/24/23 History acyclovir 400 mg tablet 1,200 mg PO DAILY 10/10/21 07/11/24 02/22/23 History ascorbic acid (vitamin C) 500 mg 250 mg PO DAILY 10/10/21 07/11/24 02/22/23 History tablet calcium carbonate 600 mg PO BID 10/10/21 07/11/24 02/22/23 History diclofenac sodium 1 % topical gel 4 g topical QID 10/10/21 07/11/24 02/25/23 History (Arthritis Pain (diclofenac)) magnesium oxide 400 mg PO BID 10/10/21 07/11/24 02/22/23 History rxuzaaejsrar-Qq-iuco-minerals 18 1 tablet PO DAILY 10/10/21 07/11/24 02/22/23 History mg-0.4 mg tablet tueaq-1g-tgt-epa-fish oil 120 1 cap PO BID 10/10/21 07/11/24 02/22/23 History mg-180 mg-60 mg-1,200 mg capsule, DR (Fish Oil) pirbuterol 200 mcg/Inhalation 1 mcg inhalation DIRECTED 10/10/21 07/11/24 02/25/23 History breath activated aerosol Super B Complex 1 tab-cap PO DAILY 10/23/21 07/11/24 02/22/23 History Tumeric 1,000 mg PO DAILY 10/23/21 07/11/24 02/22/23 History biotin 5,000 mcg disintegrating 10,000 mcg PO DAILY 10/23/21 07/11/24 02/22/23 History tablet acetaminophen 325 mg capsule 325 mg PO QHS PRN 06/29/23 07/11/24 Unknown History beta carotene 7,500 mcg (25,000 7,500 mcg PO DAILY 06/29/23 07/11/24 Unknown History unit) capsule cholecalciferol (vitamin D3) 25 25 mcg PO DAILY 06/29/23 07/11/24 Unknown History mcg (1,000 unit) capsule famotidine 20 mg tablet 20 mg PO BID 06/29/23 07/11/24 Unknown History ferrous gluconate 225 mg (27 mg 225 mg PO DAILY 06/29/23 07/11/24 Unknown History iron) tablet (Fergon) naproxen sodium 220 mg capsule 220 mg PO DAILY PRN 06/29/23 07/11/24 Unknown History (Aleve) sodium chloride 0.65 % nasal spray 1 spray intranasal BID PRN 06/29/23 07/11/24 Unknown History aerosol (Saline Nasal) thiamine HCl (vitamin B1) 250 mg 250 mg PO DAILY 06/29/23 07/11/24 Unknown History tablet Allergies Allergy/AdvReac Type Severity Reaction Status Date / Time house dust Allergy Unknown Sneezing Verified 09/03/24 13:32 nickel Allergy Unknown rash Verified 09/03/24 13:32 pneumococcal vaccine Allergy Unknown Skin Verified 09/03/24 13:32 (Pneumovax 23) Reaction PMFSH Past Medical History Medical History Diffuse cystic mastopathy Essential (primary) hypertension Moderate persistent asthma, uncomplicated Prediabetes Surgical History Surgical History Status post surgical removal of nail matrix of toe (~12/2021) Family History Family History Mother Depression Sibling Family history of lupus erythematosus Family history of lymphoma Other Family history of cardiovascular disease Family history of glaucoma Social History Social History Social History: Caffeine-very little Smoking status: Never smoker Alcohol intake: current Alcohol use details: rarely Substance use: current Substance use type: marijuana Other substance usage details: gummy or edible on occasion for sleep Do You Feel Safe in your Home?: Yes Lack of Transportation: No Lack of Food: Never True Current Housing: I Have Housing Concerned About Future Housing: No Difficulty Paying Gas/Electric Bills: No Difficulty Paying for Meds: No Currently Unemployed: No Education: Master's Degree or Higher Difficulty w/ Childcare or Family Care: No Living arrangements: with family Spiritual care concerns: No Course Vital Signs Vital signs: Vital Signs Temperature 97.0 F L 09/03/24 13:38 Pulse Rate 70 09/03/24 13:38 Respiratory Rate 16 09/03/24 13:38 Blood Pressure 143/60 H 09/03/24 13:38 Pulse Oximetry 99 09/03/24 13:38 Temperature 97.0 F L 09/03/24 13:38 Pulse Rate 70 09/03/24 13:38 Respiratory Rate 16 09/03/24 13:38 Blood Pressure 143/60 H 09/03/24 13:38 Pulse Oximetry 99 09/03/24 13:38 Discharge Plan Discharge Clinical Impression: Closed head injury Qualifiers: Encounter type: initial encounter Qualified Code(s): S09.90XA - Unspecified injury of head, initial encounter Acute cervical myofascial strain Qualifiers: Encounter type: initial encounter Qualified Code(s): S16.1XXA - Strain of muscle, fascia and tendon at neck level, initial encounter Patient Disposition: Home Condition: Stable Instructions: Antibiotic Form, Concussion (ED), Head Injury (ED) Additional Instructions: Please follow up with your PCP. Rest, ice, practice cognitive rest as discussed with slow advancement to your normal activity. Return to the emergency department if you develop loss of consciousness, seizure-like activity, confusion or altered mental status, vision changes, focal numbness or weakness, or other concerning symptoms. Take Tylenol and Zofran as needed for headache and nausea as directed. Patient Language: Uzbek Prescriptions: New ondansetron 4 mg tablet,disintegrating 4 mg PO Q8H Qty: 14 0RF acetaminophen 500 mg capsule 500 mg PO Q6H PRN (Reason: pain) Qty: 14 0RF No Action Super B Complex 1 tab-cap PO DAILY biotin 5,000 mcg Tablet,Disintegrating 10,000 mcg PO DAILY Tumeric 1,000 mg PO DAILY cetirizine 10 mg capsule 10 mg PO DAILY Gemtesa 75 mg tablet 75 mg PO DAILY Qty: 90 3RF hydrochlorothiazide 12.5 mg capsule See Rx Instructions .ROUTE .COMPLEX Qty: 90 3RF Dose Instruction: TAKE 1 CAPSULE BY MOUTH DAILY Rx Instructions: TAKE 1 CAPSULE BY MOUTH DAILY fluticasone propionate 50 mcg/actuation spray,suspension 1 spray intranasal Q12H Qty: 16 3RF Rx Instructions: administer into each nostril pirbuterol 200 mcg/Inhalation aerosol breath activated 1 mcg inhalation DIRECTED acyclovir 400 mg tablet 1,200 mg PO DAILY diclofenac sodium [Arthritis Pain (diclofenac)] 1 % gel 4 g topical QID Rx Instructions: apply to single knee, ankle, foot; for foot includes sole/toes/top of foot rofcdfovkjxp-Nc-lyil-minerals 18-0.4 mg tablet 1 tablet PO DAILY magnesium oxide 400 mg magnesium capsule 400 mg PO BID Fish Oil 120 mg-180 mg- 60 mg-1,200 mg capsule,delayed release(DR/EC) 1 cap PO BID ascorbic acid (vitamin C) 500 mg tablet 250 mg PO DAILY calcium carbonate 600 mg calcium (1,500 mg) tablet 600 mg PO BID Fergon 225 mg (27 mg iron) tablet 225 mg PO DAILY famotidine 20 mg tablet 20 mg PO BID thiamine HCl (vitamin B1) 250 mg tablet 250 mg PO DAILY Saline Nasal 0.65 % aerosol,spray 1 spray intranasal BID PRN cholecalciferol (vitamin D3) 25 mcg (1,000 unit) capsule 25 mcg PO DAILY beta carotene 7,500 mcg (25,000 unit) capsule 7,500 mcg PO DAILY Rx Instructions: administer with a meal naproxen sodium [Aleve] 220 mg capsule 220 mg PO DAILY PRN acetaminophen 325 mg capsule 325 mg PO QHS PRN solifenacin [Vesicare] 5 mg tablet 5 mg PO DAILY Qty: 90 1RF zolpidem [Ambien] 10 mg tablet 10 mg PO QHS Qty: 1 0RF Rx Instructions: take the night of her sleep study. montelukast 10 mg tablet See Rx Instructions .ROUTE .COMPLEX Qty: 100 2RF Dose Instruction: TAKE 1 TABLET BY MOUTH DAILY Rx Instructions: TAKE 1 TABLET BY MOUTH DAILY fluticasone propion-salmeterol [Wixela Inhub] 250-50 mcg/dose blister with device 1 inh inhalation BID Qty: 60 4RF losartan-hydrochlorothiazide 100-12.5 mg tablet See Rx Instructions .ROUTE .COMPLEX Qty: 100 1RF Dose Instruction: TAKE 1 TABLET BY MOUTH DAILY Rx Instructions: TAKE 1 TABLET BY MOUTH DAILY Follow-up/Referrals: Yg Camarillo MD [Primary Care Provider] -
== END 2024-09-03 14:44 | disposition home or self-care (01) ==
PROVIDERS: Emergency Provider Physician Assistant; PCP Family Medicine
DX: S16.1XXA Strain of muscle, fascia and tendon at neck level, initial encounter (principal); S09.90XA Unspecified injury of head, initial encounter; I10 Essential (primary) hypertension; J45.40 Moderate persistent asthma, uncomplicated; R73.03 Prediabetes; Z79.899 Other long term (current) drug therapy; W20.8XXA Other cause of strike by thrown, projected or falling object, initial encounter
CPT/HCPCS: 70450; 72125; 99284

== ENCOUNTER 2024-12-31 10:31 | Outpatient (CLI) | payer MEDICARE, SELFPAY ==
[2024-12-31 13:30] LABS: Alanine Aminotransferase 21 U/L (6-35); Albumin Level 4.3 g/dL (3.5-5.1); Alkaline Phosphatase 94 U/L (38-126); Anion Gap 5 mmol/L (4-12); Aspartate Amino Transferase 34 U/L (14-36); Bilirubin,Total 0.4 mg/dL (0.2-1.3); Blood Urea Nitrogen 13 mg/dL (7-17); Calcium 9.8 mg/dL (8.4-10.2); Carbon Dioxide 29 mmol/L (22-30); Chloride 104 mmol/L (98-107); Cholesterol 201 mg/dL (0-200); Estimated Glomerular Filt Rate > 60; Glucose 91 mg/dL (65-110); HDL Direct 56 mg/dL; Potassium 4.2 mmol/L (3.4-5.0); Sodium 138 mmol/L (137-145); Total Protein 7.7 g/dL (6.3-8.2); Triglycerides 108 mg/dL (<150)
[2024-12-31 14:07] LABS: Thyroid Stimulating Hormone 2.120 uIU/mL (0.465-4.680)
[2024-12-31 17:50] LABS: Hemoglobin A1C 5.5 % (<5.7)
== END 2024-12-31 10:32 | disposition home or self-care (01) ==
PROVIDERS: PCP Family Medicine; Visit Provider Nurse Practitioner Family
DX: R73.01 Impaired fasting glucose (principal); I10 Essential (primary) hypertension; I51.7 Cardiomegaly; J45.40 Moderate persistent asthma, uncomplicated; E53.9 Vitamin B deficiency, unspecified
CPT/HCPCS: 36415; 80053; 80061; 83036; 84443

== ENCOUNTER 2025-03-06 18:47 | Emergency (ER) | payer MEDICARE, SELFPAY ==
--- NOTE | ~2025-03-06 | XR_ITS ---
XR chest 1V INDICATION:fall . REFERENCE: None FINDINGS: A single frontal view of the chest demonstrates normal heart size. The lungs are clear. There is no evidence of pneumothorax or pleural effusion. IMPRESSION: No acute pulmonary findings. Reviewed, dictated and finalized at location S.
--- NOTE | ~2025-03-06 | XR_ITS ---
XR humerus RT INDICATION: pain COMPARISON: None FINDINGS: Two views of the right humerus demonstrate no acute fracture or dislocation. IMPRESSION: No acute fracture or dislocation. Reviewed, dictated and finalized at location S.
--- NOTE | ~2025-03-06 | XR_ITS ---
XR elbow RT min 3V INDICATION: fall . COMPARISON: None. FINDINGS: AP, lateral and oblique views of the right elbow demonstrate no acute fracture or dislocation. IMPRESSION: No acute fracture or dislocation. Reviewed, dictated and finalized at location S.
--- NOTE | ~2025-03-06 | XR_ITS ---
XR clavicle RT INDICATION: pain COMPARISON: None FINDINGS: 2 views of the right clavicle demonstrate no acute fracture or dislocation. IMPRESSION: No acute fracture or dislocation. Reviewed, dictated and finalized at location S.
--- NOTE | ~2025-03-06 | XR_ITS ---
XR shoulder RT min 2V HISTORY: fall . COMPARISON: None. FINDINGS: External and internal rotated views and Y view of the right shoulder demonstrate no acute fracture or dislocation. Acromioclavicular joint and glenohumeral joint are unremarkable. IMPRESSION: No acute fracture or dislocation. Reviewed, dictated and finalized at location S.
[2025-03-06 18:51] VITALS: BP 116/96; PULSE 87; RESP 15; TEMP 36.6; O2SAT 98
--- NOTE | 2025-03-06 19:01 | ED.GENADULT ---
HPI - General Adult General Chief complaint: Fall <Renae Barakat September, [employer] - Last Filed: 03/06/25 19:02> Stated complaint: fall, R elbow injury <Renae Barakat September, [employer]ER - Last Filed: 03/06/25 19:02> Time Seen by Provider: 03/06/25 19:01 <Renae Barakat September, [employer]ER - Last Filed: 03/06/25 19:02> Focused HPI: Emma Valenzuela is a 74-year-old female who presents after a mechanical ground level fall prior to arrival complaining of severe right elbow pain and right shoulder pain. Range of motion to shoulder is difficult related to pain splinting holding elbow in a flexed position with large growing hematoma and swelling to that right elbow distal pulses are intact and present. Denies hitting her head denies loss of consciousness does not take any blood thinners. She states that she did need some assistance to get up because she was unable to use that right arm denies any pain to her hips or legs. GENERAL: well-nourished, and in no acute distress. HEAD: Normocephalic, atraumatic. CHEST: Clear to auscultation. ?No respiratory distress. HEART: Regular rate and rhythm.? NEURO: ?Alert and oriented x3. Patient screened in triage and initial orders placed.? ?Additional care and disposition to be based upon?diagnostic testing and treatment. <Renae Barakat September, [employer] - Last Filed: 03/06/25 19:02> History of Present Illness HPI narrative: Agree with HPI. She was at trunk her treat when she tripped and fell landing directly on her right elbow loading her arm up to up to her shoulder. Now has pain with range of motion at the shoulder. No numbness or tingling. No head injury. Tetanus up-to-date. <Jeremy Redmond MD - Last Filed: 03/06/25 21:52> Related Data Home medications: Home Medications ?Medication ?Instructions ?Recorded ?Confirmed ?Last Taken ?Type cetirizine 10 mg capsule 10 mg PO DAILY 06/27/19 01/09/25 02/24/23 History acyclovir 400 mg tablet 1,200 mg PO DAILY 10/10/21 01/09/25 02/22/23 History ascorbic acid (vitamin C) 500 mg 250 mg PO DAILY 10/10/21 01/09/25 02/22/23 History tablet calcium carbonate 600 mg PO BID 10/10/21 01/09/25 02/22/23 History diclofenac sodium 1 % topical gel 4 g topical QID 10/10/21 01/09/25 02/25/23 History (Arthritis Pain (diclofenac)) magnesium oxide 400 mg PO BID 10/10/21 01/09/25 02/22/23 History kpvmiovvotmz-Ai-sdit-minerals 18 1 tablet PO DAILY 10/10/21 01/09/25 02/22/23 History mg-0.4 mg tablet whmvy-8h-ysz-epa-fish oil 120 1 cap PO BID 10/10/21 01/09/25 02/22/23 History mg-180 mg-60 mg-1,200 mg capsule, DR (Fish Oil) pirbuterol 200 mcg/Inhalation 1 mcg inhalation DIRECTED 10/10/21 01/09/25 02/25/23 History breath activated aerosol Super B Complex 1 tab-cap PO DAILY 10/23/21 01/09/25 02/22/23 History Tumeric 1,000 mg PO DAILY 10/23/21 01/09/25 02/22/23 History biotin 5,000 mcg disintegrating 10,000 mcg PO DAILY 10/23/21 01/09/25 02/22/23 History tablet acetaminophen 325 mg capsule 325 mg PO QHS PRN 06/29/23 01/09/25 Unknown History beta carotene 7,500 mcg (25,000 7,500 mcg PO DAILY 06/29/23 01/09/25 Unknown History unit) capsule cholecalciferol (vitamin D3) 25 25 mcg PO DAILY 06/29/23 01/09/25 Unknown History mcg (1,000 unit) capsule famotidine 20 mg tablet 20 mg PO BID 06/29/23 01/09/25 Unknown History ferrous gluconate 225 mg (27 mg 225 mg PO DAILY 06/29/23 01/09/25 Unknown History iron) tablet (Fergon) naproxen sodium 220 mg capsule 220 mg PO DAILY PRN 06/29/23 01/09/25 Unknown History (Aleve) sodium chloride 0.65 % nasal spray 1 spray intranasal BID PRN 06/29/23 01/09/25 Unknown History aerosol (Saline Nasal) thiamine HCl (vitamin B1) 250 mg 250 mg PO DAILY 06/29/23 01/09/25 Unknown History tablet sennosides 8.6 mg capsule (senna) 8.6 mg PO DAILY 09/19/24 01/09/25 Unknown History polyethylene glycol 3350 17 17 g PO DAILY 01/09/25 01/09/25 Unknown History gram/dose oral powder (SmoothLax) <Renae Bocanegra, [employer] - Last Filed: 03/06/25 19:02> Allergies/adverse reactions: Allergies Allergy/AdvReac Type Severity Reaction Status Date / Time house dust Allergy Unknown Sneezing Verified 01/09/25 09:45 nickel Allergy Unknown rash Verified 01/09/25 09:45 pneumococcal vaccine Allergy Unknown Skin Verified 01/09/25 09:45 (Pneumovax 23) Reaction <Renae Barakat September, [employer] - Last Filed: 03/06/25 19:02> Review of Systems Review of Systems: All systems reviewed & are unremarkable except as noted in HPI and below <Jeremy Redmond MD - Last Filed: 03/06/25 21:52> Constitutional: Constitutional: Reports no additional constitutional complaints <Jeremy Redmond MD - Last Filed: 03/06/25 21:52> Cardiovascular: Cardiovascular: Reports no additional cardiovascular complaints <Jeremy Redmond MD - Last Filed: 03/06/25 21:52> Respiratory: Respiratory: Reports no additional respiratory complaints <Jeremy Redmond MD - Last Filed: 03/06/25 21:52> Musculoskeletal: Musculoskeletal: Reports no additional musculoskeletal complaints <Jeremy Redmond MD - Last Filed: 03/06/25 21:52> Neurologic: Reports system reviewed and no additional complaints, except as documented <Jeremy Redmond MD - Last Filed: 03/06/25 21:52> PMFSH Past Medical History Medical History: Medical History Diffuse cystic mastopathy Essential (primary) hypertension Moderate persistent asthma, uncomplicated Prediabetes <Renae Bocanegra, [employer] - Last Filed: 03/06/25 19:02> Surgical History Surgical History: Surgical History Status post surgical removal of nail matrix of toe (~12/2021) <Renae Barakat September, [employer] - Last Filed: 03/06/25 19:02> Family History Family History: Family History Mother Depression Sibling Family history of lupus erythematosus Family history of lymphoma Other Family history of cardiovascular disease Family history of glaucoma <Renae Barakat September, [employer]ER - Last Filed: 03/06/25 19:02> Social History Social History: Social History Social History: Caffeine-very little Smoking status: Never smoker Alcohol intake: current Alcohol use details: rarely Substance use: current Substance use type: marijuana Other substance usage details: gummy or edible on occasion for sleep Do You Feel Safe in your Home?: Yes Lack of Transportation: No Lack of Food: Never True Current Housing: I Have Housing Concerned About Future Housing: No Difficulty Paying Gas/Electric Bills: No Difficulty Paying for Meds: No Currently Unemployed: No Education: Master's Degree or Higher Difficulty w/ Childcare or Family Care: No Living arrangements: with family Spiritual care concerns: No <Renae Barakat September, [employer]ER - Last Filed: 03/06/25 19:02> Exam Narrative: GENERAL: Well-appearing, well-nourished, and in no acute distress. HEAD: Normocephalic, atraumatic. ENT: Mucous membranes moist. CHEST: Clear to auscultation. No respiratory distress. HEART: Regular rate and rhythm. Normal peripheral pulses. EXTREMITIES: Right upper extremity with crepitus type feeling with range of motion at the shoulder but not at the elbow or wrist. Contusion along the ulnar aspect of the proximal forearm with abrasion as well. Neurovascular intact. No clavicle tenderness or deformity. SKIN: Warm, dry, no rash. Skin avulsion tip of left great toe. NEURO: Alert and oriented x3. PSYCH: Normal mood and affect. <Jeremy Redmond MD - Last Filed: 03/06/25 21:52> Course Course Emergency Course: Patient resting comfortably. Informed of imaging results. Has some crepitus in the mid arm/shoulder with range of motion. Suspect rotator cuff injury that is causing instability. Will place in a sling referred to Orthopedic surgery. <Jeremy Redmond MD - Last Filed: 03/06/25 21:52> Vital Signs Vital signs: Vital Signs Temperature 97.9 F 03/06/25 18:51 Pulse Rate 87 03/06/25 18:51 Respiratory Rate 15 03/06/25 18:51 Blood Pressure 116/96 H 03/06/25 18:51 Pulse Oximetry 98 03/06/25 18:51 Oxygen Delivery Room Air 03/06/25 18:51 Temperature 97.9 F 03/06/25 18:51 Pulse Rate 87 03/06/25 18:51 Respiratory Rate 15 03/06/25 18:51 Blood Pressure 116/96 H 03/06/25 18:51 Pulse Oximetry 98 03/06/25 18:51 Oxygen Delivery Room Air 03/06/25 18:51 <Renae Bocanegra, [employer] - Last Filed: 03/06/25 19:02> Vital Signs Temperature 97.9 F 03/06/25 18:51 Pulse Rate 87 03/06/25 18:51 Respiratory Rate 15 03/06/25 18:51 Blood Pressure 116/96 H 03/06/25 18:51 Pulse Oximetry 98 03/06/25 18:51 Oxygen Delivery Room Air 03/06/25 18:51 Temperature 97.9 F 03/06/25 18:51 Pulse Rate 87 03/06/25 18:51 Respiratory Rate 15 03/06/25 18:51 Blood Pressure 116/96 H 03/06/25 18:51 Pulse Oximetry 98 03/06/25 18:51 Oxygen Delivery Room Air 03/06/25 18:51 <Jeremy Redmond MD - Last Filed: 03/06/25 21:52> Medical Decision Making Vital Signs Vital Signs: Vital Signs Temperature 97.9 F 03/06/25 18:51 Pulse Rate 87 03/06/25 18:51 Respiratory Rate 15 03/06/25 18:51 Blood Pressure 116/96 H 03/06/25 18:51 Pulse Oximetry 98 03/06/25 18:51 Oxygen Delivery Room Air 03/06/25 18:51 Temperature 97.9 F 03/06/25 18:51 Pulse Rate 87 03/06/25 18:51 Respiratory Rate 15 03/06/25 18:51 Blood Pressure 116/96 H 03/06/25 18:51 Pulse Oximetry 98 03/06/25 18:51 Oxygen Delivery Room Air 03/06/25 18:51 <Renae Bocanegra [employer] - Last Filed: 03/06/25 19:02> Vital Signs Temperature 97.9 F 03/06/25 18:51 Pulse Rate 87 03/06/25 18:51 Respiratory Rate 15 03/06/25 18:51 Blood Pressure 116/96 H 03/06/25 18:51 Pulse Oximetry 98 03/06/25 18:51 Oxygen Delivery Room Air 03/06/25 18:51 Temperature 97.9 F 03/06/25 18:51 Pulse Rate 87 03/06/25 18:51 Respiratory Rate 15 03/06/25 18:51 Blood Pressure 116/96 H 03/06/25 18:51 Pulse Oximetry 98 03/06/25 18:51 Oxygen Delivery Room Air 03/06/25 18:51 <Jeremy Redmond MD - Last Filed: 03/06/25 21:52> Imaging Data Radiologist's impression: ITS Impressions Shoulder X-Ray 03/06/25 19:39 IMPRESSION: No acute fracture or dislocation. Chest X-Ray 03/06/25 19:40 IMPRESSION: No acute pulmonary findings. Clavicle X-Ray 03/06/25 19:42 IMPRESSION: No acute fracture or dislocation. Elbow X-Ray 03/06/25 19:43 IMPRESSION: No acute fracture or dislocation. Humerus X-Ray 03/06/25 21:34 IMPRESSION: No acute fracture or dislocation. <Jeremy Redmond MD - Last Filed: 03/06/25 21:52> Discharge Plan Discharge Clinical Impression: Injury of right rotator cuff, Contusion of elbow, Avulsion of skin <Renae Bocanegra, [employer] - Last Filed: 03/06/25 19:02> Patient Disposition: Home <Renae Bocanegra, [employer]ER - Last Filed: 03/06/25 19:02> Condition: Stable <Renae Bocanegra, [employer]ER - Last Filed: 03/06/25 19:02> Instructions: Rotator Cuff Injury (ED) <Renae Bocanegra, [employer]ER - Last Filed: 03/06/25 19:02> Additional Instructions: Follow-up with orthopedic surgery for further treatment and evaluation. You will likely need an MRI of your shoulder. Return the ER if you suffered a new injury, you have new numbness or tingling to your hand, or you have additional concerns. <Renae Bocanegra, CHRIS - Last Filed: 03/06/25 19:02> Patient Language: Croatian <Renae Bocanegra, [employer] - Last Filed: 03/06/25 19:02> Prescriptions: New hydrocodone-acetaminophen 5-325 mg tablet 1 tablet PO Q6H PRN (Reason: pain) Qty: 12 0RF No Action Super B Complex 1 tab-cap PO DAILY biotin 5,000 mcg Tablet,Disintegrating 10,000 mcg PO DAILY Tumeric 1,000 mg PO DAILY cetirizine 10 mg capsule 10 mg PO DAILY (DME) ReMed CPAP See Rx Instructions .Route .MEDSUPPLY Qty: 1 0RF Rx Instructions: Resmed CPAP at 9 cm H2O, size small Resmed N30 nasal mask, CPAP filters/tubing and heated humidity. Length of need: 99+ fluticasone propionate 50 mcg/actuation spray,suspension 1 spray intranasal Q12H Qty: 16 3RF Rx Instructions: administer into each nostril pirbuterol 200 mcg/Inhalation aerosol breath activated 1 mcg inhalation DIRECTED acyclovir 400 mg tablet 1,200 mg PO DAILY diclofenac sodium [Arthritis Pain (diclofenac)] 1 % gel 4 g topical QID Rx Instructions: apply to single knee, ankle, foot; for foot includes sole/toes/top of foot dfmuevgrvlna-Jn-wkmn-minerals 18-0.4 mg tablet 1 tablet PO DAILY magnesium oxide 400 mg magnesium capsule 400 mg PO BID Fish Oil 120 mg-180 mg- 60 mg-1,200 mg capsule,delayed release(DR/EC) 1 cap PO BID ascorbic acid (vitamin C) 500 mg tablet 250 mg PO DAILY calcium carbonate 600 mg calcium (1,500 mg) tablet 600 mg PO BID Fergon 225 mg (27 mg iron) tablet 225 mg PO DAILY famotidine 20 mg tablet 20 mg PO BID thiamine HCl (vitamin B1) 250 mg tablet 250 mg PO DAILY Saline Nasal 0.65 % aerosol,spray 1 spray intranasal BID PRN cholecalciferol (vitamin D3) 25 mcg (1,000 unit) capsule 25 mcg PO DAILY beta carotene 7,500 mcg (25,000 unit) capsule 7,500 mcg PO DAILY Rx Instructions: administer with a meal naproxen sodium [Aleve] 220 mg capsule 220 mg PO DAILY PRN acetaminophen 325 mg capsule 325 mg PO QHS PRN polyethylene glycol 3350 [SmoothLax] 17 gram/dose powder 17 g PO DAILY Gemtesa 75 mg tablet 75 mg PO DAILY Qty: 90 3RF senna 8.6 mg capsule 8.6 mg PO DAILY acetaminophen 500 mg capsule 500 mg PO Q6H PRN (Reason: pain) Qty: 14 0RF hydrochlorothiazide 12.5 mg capsule See Rx Instructions .ROUTE .COMPLEX Qty: 90 3RF Dose Instruction: TAKE 1 CAPSULE BY MOUTH DAILY Rx Instructions: TAKE 1 CAPSULE BY MOUTH DAILY fluticasone propion-salmeterol [Wixela Inhub] 250-50 mcg/dose blister with device 1 inh inhalation BID Qty: 60 5RF losartan-hydrochlorothiazide 100-12.5 mg tablet See Rx Instructions .ROUTE .COMPLEX Qty: 100 1RF Dose Instruction: TAKE 1 TABLET BY MOUTH DAILY Rx Instructions: TAKE 1 TABLET BY MOUTH DAILY montelukast 10 mg tablet See Rx Instructions .ROUTE .COMPLEX Qty: 100 1RF Dose Instruction: TAKE 1 TABLET BY MOUTH DAILY Rx Instructions: TAKE 1 TABLET BY MOUTH DAILY <Renae Bocanegra, CHRIS - Last Filed: 03/06/25 19:02> Follow-up/Referrals: Yoly García, PROPERTY MAINTENANCE TECHNICIAN-C [Primary Care Provider, Family Practice] Ramiro Stevens MD [Physician, Orthopedics] - 1 Week <Renae Bocanegra, CHRIS - Last Filed: 03/06/25 19:02>
== END 2025-03-06 22:11 | disposition home or self-care (01) ==
PROVIDERS: Emergency Provider Emergency Medicine; PCP Nurse Practitioner Family
DX: S46.001A Unspecified injury of muscle(s) and tendon(s) of the rotator cuff of right shoulder, initial encounter (principal); S50.01XA Contusion of right elbow, initial encounter; S50.811A Abrasion of right forearm, initial encounter; W01.0XXA Fall on same level from slipping, tripping and stumbling without subsequent striking against object, initial encounter; F12.90 Cannabis use, unspecified, uncomplicated
CPT/HCPCS: 71045; 73000; 73030; 73060; 73080; 99284; A4565

== ENCOUNTER 2025-04-24 15:22 | Outpatient (CLI) | payer MEDICARE, SELFPAY ==
--- NOTE | ~2025-04-24 | CT_ITS ---
EXAMINATION: CT shoulder RT wo con COMPARISON: None HISTORY: M25.511 - Pain in right shoulder TECHNIQUE: Axial images were obtained without IV contrast. Sagittal, coronal reconstruction images were obtained from the axial views. CT scan performed using dose optimization techniques including the following automated exposure control; adjustment of mA and/or kV; use of iterative reconstruction technique. Automatic exposure control was used to reduce radiation dose. Permanent radiation dose record is archived to PACS. FINDINGS: Severe degenerative changes of the acromioclavicular joint. Moderate degenerative changes of the glenohumeral joint with narrowing of the joint space and osteophytosis. No fracture or dislocation of the humeral head however there is a displaced fracture of the inferior aspect of the scapula adjacent to the bony glenoid anteriorly which is slightly displaced. No avascular necrosis. No rib fractures are identified. The lung parenchyma appears unremarkable. Small joint effusion noted. No intramuscular hemorrhage identified with no subcutaneous fluid collection or subcutaneous air. IMPRESSION: Fracture of the scapula detailed above Reviewed, dictated and finalized at location P. ICAL CARE UNIT NURSE
== END 2025-04-24 15:23 | disposition home or self-care (01) ==
PROVIDERS: PCP Nurse Practitioner Family; Visit Provider Orthopaedic Surgery
DX: S42.191A Fracture of other part of scapula, right shoulder, initial encounter for closed fracture (principal); X58.XXXA Exposure to other specified factors, initial encounter
CPT/HCPCS: 73200